=== PATIENT | female | born 1980 | race Caucasian/White ===

== ENCOUNTER 2016-04-28 14:41 | Emergency (ER) | payer OTHER ==
[2016-04-28] MEDS ORDERED: Naproxen 500 MG TAB ONE (15:18)
[2016-04-28] MEDS ORDERED: predniSONE 20 MG TAB ONE (15:18)
[2016-04-28] MEDS ORDERED: HYDROcodone/Acetaminophen 10/325 mg Tablet ONE (15:18)
[2016-04-28] MEDS ORDERED: Diazepam 5 MG TAB ONE (15:18)
--- NOTE | 2016-04-28 15:26 | RAD ---
RIGHT SHOULDER 3 VIEWS: Date: 04/28/16 INDICATION: Right shoulder pain. FINDINGS: There is no fracture or dislocation. AC joint is intact. IMPRESSION: No evidence of an acute osseous abnormality. POS: [facility]
--- NOTE | 2016-04-28 15:43 | RAD ---
TWO VIEWS OF THE RIGHT SCAPULA: INDICATION: Scapula pain. FINDINGS: No definite acute fracture or subluxation is present. Visualized right lung is clear. IMPRESSION: No acute osseous abnormality. POS: [facility]
== END 2016-04-28 15:56 | disposition home or self-care (01) ==
LOC: MADERS 14:41
DX: M62.838 Other muscle spasm (principal); I10 Essential (primary) hypertension; F41.9 Anxiety disorder, unspecified; F31.9 Bipolar disorder, unspecified; F90.9 Attention-deficit hyperactivity disorder, unspecified type; F17.210 Nicotine dependence, cigarettes, uncomplicated; Z79.899 Other long term (current) drug therapy
CPT/HCPCS: J7506

== ENCOUNTER 2016-06-27 21:50 | Emergency (ER) | payer OTHER ==
[2016-06-27] MEDS ORDERED: Cyclobenzaprine 10 MG TAB ONE (22:13)
[2016-06-27] MEDS ORDERED: Ketorolac Tromethamine 60 MG/2 ML VIAL ONE (22:13)
== END 2016-06-27 22:28 | disposition home or self-care (01) ==
LOC: MADERS 21:50
DX: M62.830 Muscle spasm of back (principal); R60.0 Localized edema; M06.9 Rheumatoid arthritis, unspecified; J45.909 Unspecified asthma, uncomplicated; K57.92 Diverticulitis of intestine, part unspecified, without perforation or abscess without bleeding; I10 Essential (primary) hypertension; F41.9 Anxiety disorder, unspecified; F31.9 Bipolar disorder, unspecified; F42.9 Obsessive-compulsive disorder, unspecified; F90.9 Attention-deficit hyperactivity disorder, unspecified type; F43.10 Post-traumatic stress disorder, unspecified; F17.210 Nicotine dependence, cigarettes, uncomplicated; Z79.899 Other long term (current) drug therapy
CPT/HCPCS: 96372; J1885

== ENCOUNTER 2016-07-08 13:13 | Emergency (ER) | payer OTHER ==
[~2016-07-08 13:13] MED LIST: Sodium Chloride 0.9% 500 ML BAG ONE
[2016-07-08 13:33] LABS: PTT 31.1 SEC (22.9-36.1); Prothrombin Time 13.2 SEC (12.0-14.7)
[2016-07-08 13:40] LABS: #Basophils 0.1 thou/uL (0.0-0.2); #Eosinphils 0.2 thou/uL (0.0-0.7); #Lymphocytes 3.9 thou/uL (1.20-3.40); #Monocytes 0.8 thou/uL (0.11-0.59); #Neutrophils 12.7 thou/uL (1.40-6.50); %Basophils 0.6 % (0.0-1.0); %Eosinophils 1.2 % (0.0-10.0); %Monocytes 4.6 % (0.0-10.0); %Neutrophils 71.6 % (42.0-75.0); Hemoglobin 14.6 g/dL (12.0-16.0); Mean Corpuscular HGB CONC 33.8 g/dL (32.0-36.0); Mean Corpuscular Hemoglobin 33.1 pg (27.0-31.0); Mean Corpuscular Volume 98.2 fl (81.0-99.0); Mean Platelet Volume 6.1 fL (7.4-10.4); Platelet Count 479 thou/uL (130-400); RBC Distribution Width 12.5 % (11.5-14.5); White Blood Cell (WBC) Count 17.7 thou/uL (4.8-10.8)
[2016-07-08 13:44] LABS: ALT (SGPT) 23 U/L (0-55); AST (SGOT) 13 U/L (5-34); Albumin 4.1 g/dL (3.5-5.0); Alcohol Less than 10 mg/dL (Less than 10); Alkaline Phosphatase 97 U/L (40-150); Anion Gap 13 mmol/L (10-20); BUN (Urea Nitrogen) 12 mg/dL (7.0-18.7); Bilirubin, Total 0.7 mg/dL (0.2-1.2); Calc. Creatinine Clearance 0 mL/min (70-130); Calcium 9.2 mg/dL (7.8-10.44); Carbon Dioxide 26 mmol/L (22-29); Chloride 104 mmol/L (98-107); Estimated GFR-MDRD Greater than 90; Globulin 2.9 g/dL (2.4-3.5); Glucose 77 mg/dL (70-105); Potassium 3.4 mmol/L (3.5-5.1); Sodium 140 mmol/L (136-145)
[2016-07-08 13:53] LABS: CKMB 1.3 ng/mL (0-6.6); Troponin I Less than 0.010 ng/mL (< 0.028)
--- NOTE | 2016-07-08 14:15 | RAD ---
PORTABLE CHEST 1 VIEW: Date: 07/08/16 Time: 1325 hours HISTORY: Chest pain. FINDINGS: The heart size is normal. No focal areas of consolidation, pneumothorax, or pleural effusions are se en. IMPRESSION: No radiographic evidence of acute cardiopulmonary process. POS: [facility]
[2016-07-08] MEDS ORDERED: Lorazepam 2 MG/ML VIAL ONE (14:37)
[2016-07-08] MEDS ORDERED: Potassium Chloride 20 MEQ TAB ONE (14:38)
[2016-07-08] MEDS ORDERED: Ondansetron HCl/PF 4 MG/2 ML Vial ONE (14:38)
--- NOTE | 2016-07-09 11:02 | CT ---
CT OF BRAIN PERFORMED WITHOUT CONTRAST ENHANCEMENT: Date: 07/08/16 HISTORY: Stroke. FINDINGS: The ventricular and cisternal system is within normal limits. There are no signs of intracerebral he morrhage or extra-axial fluid collections. The mastoid air cells and visualized sinuses are clear. A n osteoma is incidentally noted within the right ethmoid air cells. IMPRESSION: No acute intracranial abnormalities. This report was telephoned to Dr. Matson at 1330 hours. CODE CR. POS: [facility]
== END 2016-07-08 16:05 | disposition short-term general hospital (02) ==
LOC: MADERS 13:13
DX: G51.3 Clonic hemifacial spasm (principal); E87.6 Hypokalemia; I10 Essential (primary) hypertension; J45.909 Unspecified asthma, uncomplicated; F41.9 Anxiety disorder, unspecified; F31.9 Bipolar disorder, unspecified; F90.9 Attention-deficit hyperactivity disorder, unspecified type; F17.210 Nicotine dependence, cigarettes, uncomplicated; Z79.899 Other long term (current) drug therapy
CPT/HCPCS: 36415; 36416; 70450; 71010; 80053; 80307; 82553; 84484; 85025; 85610; 85730; 93005; 96361; 96374; 96375; 96376; J2060; J2405; J7050

== ENCOUNTER 2016-09-25 21:11 | Emergency (ER) | payer OTHER ==
[2016-09-25] MEDS ORDERED: Diazepam 10 MG/2 ML SYRINGE ONE (22:02)
[2016-09-25] MEDS ORDERED: Lorazepam 2 MG/ML VIAL ONE (22:02)
[2016-09-25] MEDS ORDERED: Morphine Sulfate 2 MG/ML SYRINGE ONE ×2 (22:02→23:19)
[2016-09-25 22:18] LABS: #Basophils 0.1 thou/uL (0.0-0.2); #Eosinphils 0.2 thou/uL (0.0-0.7); #Lymphocytes 3.1 thou/uL (1.20-3.40); #Monocytes 0.7 thou/uL (0.11-0.59); #Neutrophils 6.6 thou/uL (1.40-6.50); %Basophils 1.2 % (0.0-1.0); %Eosinophils 1.7 % (0.0-10.0); %Monocytes 6.2 % (0.0-10.0); Hemoglobin 14.9 g/dL (12.0-16.0); Mean Corpuscular HGB CONC 33.6 g/dL (32.0-36.0); Mean Corpuscular Volume 95.2 fl (81.0-99.0); Mean Platelet Volume 6.9 fL (7.4-10.4); Platelet Count 384 thou/uL (130-400); RBC Distribution Width 12.5 % (11.5-14.5); Red Blood Cell (RBC) Count 4.64 mill/uL (4.20-5.40); White Blood Cell (WBC) Count 10.6 thou/uL (4.8-10.8)
--- NOTE | 2016-09-25 22:27 | RAD ---
PORTABLE UPRIGHT FRONTAL CHEST RADIOGRAPH: Date: 09-25-16 Comparison: 07-08-16 History: Pain. FINDINGS: Motion artifact limits evaluation of the lung bases. The lungs appear clear. Heart and mediastinal c ontours are unremarkable. IMPRESSION: No acute findings. POS: [facility]
[2016-09-25 22:28] LABS: BHCG - Serum Negative (NEGATIVE); Pregs Control Background? CLEAR/WHITE (CLR/WHITE); Pregs Control Bar Appear? YES (CONTROL BAR)
[2016-09-25 22:35] LABS: Bacteria/HPF Rare-Few HPF (None Seen); Bilirubin Negative (Negative); Blood, Urine Trace (Negative); Clarity Hazy (Clear); Glucose, Urine (Dipstick) Negative (Negative); Leukocyte Negative (Negative); Nitrite Negative (Negative); Protein, Urine (Dipstick) Negative (Neg-Trace); RBC/HPF 0-3 HPF (0-3); Urobilinogen 0.2 mg/dL (0.2-1.0); WBC/HPF 0-3 HPF (0-3); Yeast-All Forms Rare HPF (None Seen); pH, Urine 6.5 (5.0-9.0)
[2016-09-25 22:36] LABS: ALT (SGPT) 16 U/L (8-55); AST (SGOT) 14 U/L (5-34); Albumin 3.7 g/dL (3.5-5.0); Alkaline Phosphatase 72 U/L (40-150); Anion Gap 17 mmol/L (10-20); BUN (Urea Nitrogen) 13 mg/dL (7.0-18.7); Bilirubin, Total Less than 0.3 mg/dL (0.2-1.2); Calc. Creatinine Clearance 0 mL/min (70-130); Calcium 8.7 mg/dL (7.8-10.44); Carbon Dioxide 21 mmol/L (22-29); Chloride 102 mmol/L (98-107); Estimated GFR-MDRD 90; Globulin 4.1 g/dL (2.4-3.5); Glucose 89 mg/dL (70-105); Potassium 3.5 mmol/L (3.5-5.1); Protein, Total 7.8 g/dL (6.0-8.3); Sodium 136 mmol/L (136-145)
== END 2016-09-25 23:38 | disposition home or self-care (01) ==
LOC: MADERS 21:11
DX: M62.838 Other muscle spasm (principal); E87.70 Fluid overload, unspecified; M06.9 Rheumatoid arthritis, unspecified; I10 Essential (primary) hypertension; J45.909 Unspecified asthma, uncomplicated; G40.909 Epilepsy, unspecified, not intractable, without status epilepticus; F31.9 Bipolar disorder, unspecified; F41.9 Anxiety disorder, unspecified; F90.9 Attention-deficit hyperactivity disorder, unspecified type; F17.210 Nicotine dependence, cigarettes, uncomplicated; Z79.899 Other long term (current) drug therapy
CPT/HCPCS: 71010; 80053; 81001; 83880; 84703; 85025; 87086; 96374; 96375; 96376; J2060; J2270; J3360

== ENCOUNTER 2016-12-07 23:49 | Emergency (ER) | payer OTHER ==
[2016-12-08] MEDS ORDERED: Cephalexin 500 MG CAP ONE (00:22)
[2016-12-08] MEDS ORDERED: Acetaminophen/Codeine 30-300mg Tablet ONE (00:22)
[2016-12-08] MEDS ORDERED: Sulfameth/Trimethoprim DS 800-160mg TAB ONE (00:22)
[2016-12-08] MEDS ORDERED: Mupirocin 2% Ointment 22 GM Tube ONE (00:34)
== END 2016-12-08 00:45 | disposition home or self-care (01) ==
LOC: MADERS 23:49
DX: L01.00 Impetigo, unspecified (principal); F41.9 Anxiety disorder, unspecified; F31.9 Bipolar disorder, unspecified; F42.9 Obsessive-compulsive disorder, unspecified; F43.10 Post-traumatic stress disorder, unspecified; F17.210 Nicotine dependence, cigarettes, uncomplicated; F90.9 Attention-deficit hyperactivity disorder, unspecified type; G40.909 Epilepsy, unspecified, not intractable, without status epilepticus; J45.909 Unspecified asthma, uncomplicated; I10 Essential (primary) hypertension; M06.9 Rheumatoid arthritis, unspecified; Z79.01 Long term (current) use of anticoagulants; Z79.899 Other long term (current) drug therapy
CPT/HCPCS: 87070; 87077; 87186; 87205; 99283

== ENCOUNTER → 2017-03-07 | Emergency (ER) | payer OTHER ==
[~2017-03-07] MED LIST changes: +HYDROcodone/Acetaminophen 10/325 mg Tablet ONE; +Ibuprofen 800 MG TAB ONE; +Penicillin V Potassium 250 MG TAB ONE; -Sodium Chloride 0.9% 500 ML BAG ONE
== END ==
LOC: MADERS 17:45
DX: K02.9 Dental caries, unspecified (principal); K03.81 Cracked tooth; F31.9 Bipolar disorder, unspecified; F41.9 Anxiety disorder, unspecified; F90.9 Attention-deficit hyperactivity disorder, unspecified type; F43.10 Post-traumatic stress disorder, unspecified; F17.210 Nicotine dependence, cigarettes, uncomplicated; J45.909 Unspecified asthma, uncomplicated; I10 Essential (primary) hypertension; G40.909 Epilepsy, unspecified, not intractable, without status epilepticus; M06.9 Rheumatoid arthritis, unspecified; Z79.899 Other long term (current) drug therapy
CPT/HCPCS: 99282

== ENCOUNTER 2017-03-27 15:52 | Emergency (ER) | payer OTHER ==
[2017-03-27] MEDS ORDERED: Dexamethasone 10 MG/ML VIAL ONE (16:19)
[2017-03-27] MEDS ORDERED: Ketorolac Tromethamine 60 MG/2 ML VIAL ONE (16:19)
[2017-03-27] MEDS ORDERED: HYDROcodone/Acetaminophen 5/325 mg Tablet ONE (16:59)
== END 2017-03-27 17:05 | disposition home or self-care (01) ==
LOC: MADERS 15:52
DX: M25.50 Pain in unspecified joint (principal); M79.7 Fibromyalgia; I10 Essential (primary) hypertension; G40.909 Epilepsy, unspecified, not intractable, without status epilepticus; G89.29 Other chronic pain; J45.909 Unspecified asthma, uncomplicated; F17.210 Nicotine dependence, cigarettes, uncomplicated; F31.9 Bipolar disorder, unspecified; Z79.899 Other long term (current) drug therapy; Z79.82 Long term (current) use of aspirin
CPT/HCPCS: 96372; J1100; J1885

== ENCOUNTER 2017-04-09 12:27 | Emergency (ER) | payer OTHER ==
[~2017-04-09 12:27] MED LIST changes: -HYDROcodone/Acetaminophen 10/325 mg Tablet ONE; -Ibuprofen 800 MG TAB ONE; +Iopamidol 370 76% 100 ML VIAL ONE; -Penicillin V Potassium 250 MG TAB ONE; +Sodium Chloride 0.9% 1,000 ML BAG ONE
[2017-04-09] MEDS ORDERED: Ondansetron HCl/PF 4 MG/2 ML Vial ONE (13:05)
[2017-04-09] MEDS ORDERED: Ketorolac Tromethamine 30 MG/ML VIAL ONE (13:05)
[2017-04-09 13:29] LABS: #Basophils 0.1 thou/uL (0.0-0.2); #Eosinphils 0.1 thou/uL (0.0-0.7); #Monocytes 0.5 thou/uL (0.11-0.59); %Eosinophils 1.1 % (0.0-10.0); %Lymphocytes 28.4 % (21.0-51.0); %Monocytes 4.2 % (0.0-10.0); %Neutrophils 65.3 % (42.0-75.0); Hemoglobin 14.7 g/dL (12.0-16.0); Mean Corpuscular HGB CONC 32.5 g/dL (32.0-36.0); Mean Corpuscular Hemoglobin 32.7 pg (27.0-31.0); Mean Corpuscular Volume 100.7 fl (81.0-99.0); Mean Platelet Volume 6.2 fL (7.4-10.4); Platelet Count 407 thou/uL (130-400); RBC Distribution Width 15.2 % (11.5-14.5); Red Blood Cell (RBC) Count 4.49 mill/uL (4.20-5.40); White Blood Cell (WBC) Count 10.7 thou/uL (4.8-10.8)
[2017-04-09 13:50] LABS: ALT (SGPT) 101 U/L (8-55); AST (SGOT) 47 U/L (5-34); Albumin 3.7 g/dL (3.5-5.0); Alkaline Phosphatase 121 U/L (40-150); Anion Gap 16 mmol/L (10-20); BUN (Urea Nitrogen) 15 mg/dL (7.0-18.7); Bilirubin, Total 0.5 mg/dL (0.2-1.2); Calc. Creatinine Clearance 0 mL/min (70-130); Calcium 9.1 mg/dL (7.8-10.44); Carbon Dioxide 22 mmol/L (22-29); Chloride 104 mmol/L (98-107); Estimated GFR-MDRD 90; Globulin 3.7 g/dL (2.4-3.5); Glucose 120 mg/dL (70-105); Lipase 25 U/L (8-78); Protein, Total 7.4 g/dL (6.0-8.3); Sodium 137 mmol/L (136-145)
[2017-04-09 14:35] LABS: Bilirubin Negative (Negative); Blood, Urine Negative (Negative); Glucose, Urine (Dipstick) Negative (Negative); Leukocyte Negative (Negative); Nitrite Negative (Negative); Protein, Urine (Dipstick) Negative (Neg-Trace); Specific Gravity, Urine 1.015 (1.005-1.030); Urobilinogen 0.2 mg/dL (0.2-1.0); pH, Urine 8.5 (5.0-9.0)
[2017-04-09 14:36] LABS: Clarity Hazy (Clear)
[2017-04-09 14:43] LABS: Amphetamine Not Detected (NotDetected); Barbiturates Screen Not Detected (NotDetected); Benzodiazepine Screen Not Detected (NotDetected); Cocaine Metabolite Screen Not Detected (NotDetected); Medtox Control Line Valid? VALID (VALID); Methadone Not Detected (NotDetected); Methamphetamine Not Detected (NotDetected); Opiate Screen Not Detected (NotDetected); Oxycodone Screen Not Detected (NotDetected); Phencyclidine (PCP) Not Detected (NotDetected); THC/Cannabinoid Screen Not Detected (NotDetected); Tricyclic Screen Not Detected (NotDetected)
--- NOTE | 2017-04-09 15:00 | CT ---
ABDOMEN CT WITH CONTRAST PELVIC CT WITH CONTRAST: Date: 04/09/17 HISTORY: Cervical cancer. Left lower quadrant pain. COMPARISON: 11/25/12. TECHNIQUE: Abdomen and pelvic CT performed with IV contrast. Enteric contrast was not administered. Coronal refo rmatted images are submitted for interpretation. FINDINGS: ABDOMEN CT: Lung bases are clear. Heart size is within normal limits. No pericardial effusion. The descending tho racic aorta and abdominal aorta have an overall normal caliber. No periaortic fat stranding. Symmetri c attenuation of the psoas muscles. No gastrohepatic, retrocrural, or periportal lymphadenopathy. Intra and extrahepatic portal veins pat ent. Contracted gallbladder. Liver, spleen, pancreas, and adrenal glands have appropriate enhancement. No mesenteric mass, lymphadenopathy, free air, or free fluid. Symmetric enhancement of the kidneys. Hypodensities in the left and right renal cortex are too small to characterize, but are statistically favored to be cysts. Bilaterally, no obstructive uropathy. There is evidence of previous hernia repair. There continues to be diastasis of the ventral abdominal musculature. There is stable stranding of the subcutaneous fat just superficial to the mesh. Stable atrophy of the rectus muscles. Limited evaluation of the alimentary canal due to lack of oral contrast. No definite bowel obstructio n. Ileocecal junction is normal. Normal caliber appendix. There is diverticulosis, without evidence o f diverticulitis. PELVIC CT: Uterus is surgically absent. Left adnexa is unremarkable. Hypodensity with septations in the right ad nexa, compatible with a complex right ovarian cyst, measuring 3.6 x 3.1 cm. Urinary bladder is unremarkable. No pelvic mass, lymphadenopathy, free air, or free fluid. IMPRESSION: No acute abnormality in the abdomen or pelvis. Complex right ovarian cyst. Follow up ultrasound in 6 weeks. POS: [facility]
[2017-04-09] MEDS ORDERED: Dicyclomine 10 MG CAP ONE (15:03)
== END 2017-04-09 15:21 | disposition home or self-care (01) ==
LOC: MADERS 12:27
DX: K57.90 Diverticulosis of intestine, part unspecified, without perforation or abscess without bleeding (principal); K66.0 Peritoneal adhesions (postprocedural) (postinfection); M06.9 Rheumatoid arthritis, unspecified; J45.909 Unspecified asthma, uncomplicated; F41.9 Anxiety disorder, unspecified; F31.9 Bipolar disorder, unspecified; F90.9 Attention-deficit hyperactivity disorder, unspecified type; F17.210 Nicotine dependence, cigarettes, uncomplicated; Z79.899 Other long term (current) drug therapy
CPT/HCPCS: 36415; 74177; 80053; 80306; 81003; 82150; 83690; 85025; 96361; 96374; 96375; J1885; J2405; J7050

== ENCOUNTER 2017-04-10 07:54 | Emergency (ER) | payer OTHER ==
[~2017-04-10 07:54] MED LIST changes: -Iopamidol 370 76% 100 ML VIAL ONE
[2017-04-10 08:44] LABS: Bilirubin Negative (Negative); Blood, Urine Small (Negative); Clarity Clear (Clear); Glucose, Urine (Dipstick) Negative (Negative); Leukocyte Trace (Negative); Nitrite Negative (Negative); Protein, Urine (Dipstick) Negative (Neg-Trace); Urobilinogen 0.2 mg/dL (0.2-1.0)
[2017-04-10 08:52] LABS: #Basophils 0.1 thou/uL (0.0-0.2); #Eosinphils 0.1 thou/uL (0.0-0.7); #Monocytes 0.8 thou/uL (0.11-0.59); #Neutrophils 13.4 thou/uL (1.40-6.50); %Basophils 0.4 % (0.0-1.0); %Eosinophils 0.7 % (0.0-10.0); %Monocytes 4.8 % (0.0-10.0); %Neutrophils 82.1 % (42.0-75.0); Hemoglobin 14.1 g/dL (12.0-16.0); Mean Corpuscular HGB CONC 32.3 g/dL (32.0-36.0); Mean Platelet Volume 6.3 fL (7.4-10.4); Platelet Count 353 thou/uL (130-400); RBC Distribution Width 15.3 % (11.5-14.5); Red Blood Cell (RBC) Count 4.29 mill/uL (4.20-5.40); White Blood Cell (WBC) Count 16.3 thou/uL (4.8-10.8)
[2017-04-10] MEDS ORDERED: MORPHINE 10 MG/ML SYRINGE ONE (08:56)
[2017-04-10 09:01] LABS: WBC/HPF 0-3 HPF (0-3)
[2017-04-10 09:02] LABS: Bacteria/HPF Rare-Few HPF (None Seen)
[2017-04-10 09:03] LABS: INR-International Normal Ratio 0.8; Prothrombin Time 11.5 SEC (12.0-14.7)
[2017-04-10 09:13] LABS: ALT (SGPT) 119 U/L (8-55); AST (SGOT) 63 U/L (5-34); Albumin 3.7 g/dL (3.5-5.0); Alkaline Phosphatase 137 U/L (40-150); Anion Gap 16 mmol/L (10-20); BUN (Urea Nitrogen) 17 mg/dL (7.0-18.7); Calc. Creatinine Clearance 0 mL/min (70-130); Calcium 9.8 mg/dL (7.8-10.44); Carbon Dioxide 25 mmol/L (22-29); Chloride 102 mmol/L (98-107); Estimated GFR-MDRD 83; Globulin 3.6 g/dL (2.4-3.5); Glucose 79 mg/dL (70-105); Potassium 4.6 mmol/L (3.5-5.1); Protein, Total 7.3 g/dL (6.0-8.3); Sodium 138 mmol/L (136-145)
[2017-04-10 09:20] LABS: Bilirubin, Total 0.4 mg/dL (0.2-1.2)
--- NOTE | 2017-04-10 09:42 | RAD ---
1 VIEW CHEST AND ABDOMEN 2 VIEWS: Date: 04/10/17 HISTORY: Abdominal pain x4 days. Nausea, vomiting, and diarrhea. FINDINGS: 1 VIEW CHEST: Normal cardiac silhouette. Pulmonary vessels and hilum are normal. Costophrenic angles are clear. No masses or consolidation. No pneumothorax or osseous abnormalities. ABDOMEN 2 VIEWS: Limited evaluation of bowel gas. No evidence of bowel distention or dilatation. Fecal material in non distended, nondilated colon. No suspicious densities in the abdomen or pelvis. Surgical clips in the right upper quadrant. No pneumoperitoneum. IMPRESSION: 1. No acute cardiopulmonary process. 2. Nonspecific bowel gas pattern. Limited evaluation of the bowel gas pattern due to body habitus. I f there is concern, consider repeat CT. POS: [facility]
[2017-04-10] MEDS ORDERED: Piperacillin/Tazobactam 4.5 GM VIAL ONE (09:49)
[2017-04-10] MEDS ORDERED: Morphine 4 MG/ML VIAL ONE ×2 (10:48→14:33)
[2017-04-10] MEDS ORDERED: Iopamidol 370 76% 100 ML VIAL ONE (12:05)
--- NOTE | 2017-04-10 14:14 | CT ---
CT OF THE ABDOMEN AND PELVIS WITH CONTRAST: History: Left lower quadrant pain. Date: 04-10-17 Comparison: 04-09-17 FINDINGS: Images demonstrate no significant evidence of lung base abnormality seen. No evidence of intraperiton eal air is seen. No evidence of periaortic fat stranding is seen. The liver, spleen, gallbladder, lugo creas, adrenal glands and kidneys are unremarkable. Small cortical cyst seen in both kidneys. No evidence of small bowel obstruction is seen. A normal appendix is seen. The colon is unremarkable without evidence of obvious masses or changes of diverticulitis. The patient has had a previous hysterectomy. Right ovarian cyst is again seen. Left ovary is unremark able. IMPRESSION: 1. Stable CT appearance of the abdomen and pelvis. POS: [facility]
== END 2017-04-10 15:57 | disposition home or self-care (01) ==
LOC: MADERS 07:54
DX: A09 Infectious gastroenteritis and colitis, unspecified (principal); I10 Essential (primary) hypertension; J45.909 Unspecified asthma, uncomplicated; F41.9 Anxiety disorder, unspecified; F31.9 Bipolar disorder, unspecified; F90.9 Attention-deficit hyperactivity disorder, unspecified type; F17.210 Nicotine dependence, cigarettes, uncomplicated
CPT/HCPCS: 74022; 74177; 80053; 81003; 81015; 85025; 85610; 85730; 96361; 96365; 96375; 96376; J2270; J2543; J7050

== ENCOUNTER 2017-07-02 18:12 | Emergency (ER) | payer OTHER ==
[2017-07-02] MEDS ORDERED: Mag-Al Plus 1200 MG/1200 MG/120 MG/30 ML UDCUP ONE (18:59)
[2017-07-02] MEDS ORDERED: Promethazine HCl 25 MG/ML VIAL ONE (18:59)
== END 2017-07-02 19:00 | disposition home or self-care (01) ==
LOC: MADERS 18:12
DX: K52.9 Noninfective gastroenteritis and colitis, unspecified (principal); F31.9 Bipolar disorder, unspecified; F41.9 Anxiety disorder, unspecified; F90.9 Attention-deficit hyperactivity disorder, unspecified type; F43.10 Post-traumatic stress disorder, unspecified; F42.9 Obsessive-compulsive disorder, unspecified; F17.210 Nicotine dependence, cigarettes, uncomplicated; J45.909 Unspecified asthma, uncomplicated; G40.909 Epilepsy, unspecified, not intractable, without status epilepticus; M06.9 Rheumatoid arthritis, unspecified; Z79.899 Other long term (current) drug therapy; F40.00 Agoraphobia, unspecified
CPT/HCPCS: 96372; J2550

== ENCOUNTER 2017-10-02 15:51 | Emergency (ER) | payer OTHER ==
[2017-10-02] MEDS ORDERED: HYDROcodone/Acetaminophen 10/325 mg Tablet ONE (17:01)
[2017-10-02] MEDS ORDERED: Naproxen 500 MG TAB ONE (17:01)
[2017-10-02] MEDS ORDERED: AMOXicillin 250 MG CAP ONE (17:01)
[2017-10-02] MEDS ORDERED: predniSONE 20 MG TAB ONE (17:01)
== END 2017-10-02 17:05 | disposition home or self-care (01) ==
LOC: MADERS 15:51
DX: L42 Pityriasis rosea (principal); K02.9 Dental caries, unspecified; M06.9 Rheumatoid arthritis, unspecified; I10 Essential (primary) hypertension; F31.9 Bipolar disorder, unspecified; F41.9 Anxiety disorder, unspecified; F17.210 Nicotine dependence, cigarettes, uncomplicated
CPT/HCPCS: 99282; J7506

== ENCOUNTER 2018-04-10 16:34 | Emergency (ER) | payer OTHER | END 2018-04-10 17:30 | disposition home or self-care (01) | LOC: MADERS 16:34 | DX: M79.7 Fibromyalgia (principal); I10 Essential (primary) hypertension; J45.909 Unspecified asthma, uncomplicated; G40.909 Epilepsy, unspecified, not intractable, without status epilepticus; F41.9 Anxiety disorder, unspecified; F31.9 Bipolar disorder, unspecified; F42.9 Obsessive-compulsive disorder, unspecified; F90.9 Attention-deficit hyperactivity disorder, unspecified type; F43.10 Post-traumatic stress disorder, unspecified; F17.210 Nicotine dependence, cigarettes, uncomplicated | CPT/HCPCS: 99283 ==

== ENCOUNTER 2018-09-05 19:44 | Inpatient (IN) | payer OTHER ==
[~2018-09-05 19:44] MED LIST changes: +Iopamidol 370 76% 100 ML VIAL ONE; -Sodium Chloride 0.9% 1,000 ML BAG ONE
[2018-09-05] MEDS ORDERED: Clindamycin/D5W 600 mg/50 ml Premix Bag ONE (21:00)
[2018-09-05] MEDS ORDERED: Morphine 10 MG/ML VIAL ONE (21:00)
[2018-09-05 21:01] LABS: #Basophils 0.1 thou/uL (0.0-0.2); #Eosinphils 0.1 thou/uL (0.0-0.7); #Lymphocytes 2.5 thou/uL (1.20-3.40); #Monocytes 0.9 thou/uL (0.11-0.59); #Neutrophils 10.4 thou/uL (1.40-6.50); %Basophils 0.7 % (0.0-1.0); %Eosinophils 0.6 % (0.0-10.0); %Lymphocytes 17.6 % (21.0-51.0); %Monocytes 6.1 % (0.0-10.0); %Neutrophils 74.9 % (42.0-75.0); Hemoglobin 12.6 g/dL (12.0-16.0); Mean Corpuscular HGB CONC 34.1 g/dL (32.0-36.0); Mean Corpuscular Hemoglobin 31.5 pg (27.0-31.0); Mean Corpuscular Volume 92.5 fL (78.0-98.0); Mean Platelet Volume 5.5 fL (7.4-10.4); Platelet Count 408 thou/uL (130-400); RBC Distribution Width 12.6 % (11.5-14.5); Red Blood Cell (RBC) Count 4.01 mill/uL (4.20-5.40); White Blood Cell (WBC) Count 13.9 thou/uL (4.8-10.8)
[2018-09-05 21:21] LABS: ALT (SGPT) 93 U/L (8-55); AST (SGOT) 111 U/L (5-34); Albumin 3.5 g/dL (3.5-5.0); Alkaline Phosphatase 196 U/L (40-150); Anion Gap 15 mmol/L (10-20); BUN (Urea Nitrogen) 10 mg/dL (7.0-18.7); Bilirubin, Total 0.3 mg/dL (0.2-1.2); Calc. Creatinine Clearance 0 mL/min (70-130); Calcium 8.3 mg/dL (7.8-10.44); Carbon Dioxide 23 mmol/L (22-29); Chloride 102 mmol/L (98-107); Estimated GFR-MDRD Greater than 90; Globulin 3.1 g/dL (2.4-3.5); Glucose 133 mg/dL (70-105); Potassium 3.6 mmol/L (3.5-5.1); Protein, Total 6.6 g/dL (6.0-8.3); Sodium 136 mmol/L (136-145)
--- NOTE | 2018-09-05 22:17 | CT ---
CT OF FACIAL BONES PERFORMED WITH CONTRAST ENHANCEMENT: 09/05/18 HISTORY: Right sided facial swelling x5 days. The visualized brain parenchyma shows no focal findings. There is mild ethmoid air cell mucosa change with an osteoma in the right ethmoid air cells incidentally seen. Bilateral avelina bullosa deformiti es are present. There is moderate mucosal change within the right maxillary sinus with obstructive mu cosal change of the right maxillary ostium. Nasal septum is slightly deviated and there is a right si ded nasal septal spur present. No air fluid levels. The parotid and submandibular glands appear unrem arkable. There are inflammatory changes on the superficial portion of the right parotid gland. Parap haryngeal spaces are clear. Soft tissue swelling extends along the right side of the face. There is e vidence of dental disease involving the maxillary bone but I would not definitely say that this is th e underlying cause for the facial swelling. There is moderate submandibular and jugular chain adenopa thy which is probably all reactive nodes. IMPRESSION: Moderate right sided facial swelling without signs of abscess. Changes are felt to be related to the underlying maxillary sinus disease rather than dental disease. POS: [facility]
[2018-09-05] MEDS ORDERED: cefTRIAXone\\ROCEPHIN 1 GM VIAL ONE (23:00)
[2018-09-05] MEDS ORDERED: Sodium Chloride 0.9% 100 ML ONE (23:00)
[2018-09-06] MEDS ORDERED: Morphine 4 MG/ML VIAL ONE (00:01)
[2018-09-06] MEDS ORDERED: HYDROcodone/Acetaminophen 5/325 mg Tablet PO PRN (01:55)
[2018-09-06] MEDS ORDERED: Acetaminophen 325 MG TAB PO PRN (01:55)
[2018-09-06] MEDS ORDERED: Ondansetron ODT 4 MG TAB PO PRN (01:56)
[2018-09-06] MEDS: HYDROcodone/Acetaminophen 5/325 mg Tablet PO PRN ×5 (03:39→21:06)
[2018-09-06 04:58] VITALS: BMI 42.5
[2018-09-06] MEDS: Clindamycin/D5W 600 MG in Premix Bag 1 BAG IVPB SCH ×3 (05:31→21:05)
[2018-09-06] MEDS: Famotidine 20 MG TAB PO SCH ×2 (09:09→21:05)
[2018-09-06] MEDS: Enoxaparin Sodium 40 MG/0.4 ML SYRINGE SC SCH (09:09)
[2018-09-06] MEDS: clonazePAM 0.5 MG TAB PO SCH (21:04)
[2018-09-06] MEDS: LURASIDONE HCL 20 MG PO SCH (21:05)
[2018-09-06] MEDS: cloNIDine 0.1 MG TAB PO SCH (21:05)
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
[2018-09-07] MEDS: HYDROcodone/Acetaminophen 5/325 mg Tablet PO PRN ×5 (02:24→21:17)
[2018-09-07 05:11] LABS: Hemoglobin 12.7 g/dL (12.0-16.0); Red Blood Cell (RBC) Count 4.15 mill/uL (4.20-5.40); White Blood Cell (WBC) Count 11.7 thou/uL (4.8-10.8)
[2018-09-07 05:12] LABS: #Basophils 0.1 thou/uL (0.0-0.2); #Eosinphils 0.1 thou/uL (0.0-0.7); #Lymphocytes 2.4 thou/uL (1.20-3.40); #Monocytes 0.7 thou/uL (0.11-0.59); #Neutrophils 8.3 thou/uL (1.40-6.50); %Basophils 0.6 % (0.0-1.0); %Eosinophils 0.9 % (0.0-10.0); %Lymphocytes 20.8 % (21.0-51.0); %Monocytes 6.4 % (0.0-10.0); %Neutrophils 71.4 % (42.0-75.0); Mean Corpuscular HGB CONC 32.6 g/dL (32.0-36.0); Mean Corpuscular Hemoglobin 30.6 pg (27.0-31.0); Mean Platelet Volume 5.4 fL (7.4-10.4); Platelet Count 421 thou/uL (130-400); RBC Distribution Width 12.5 % (11.5-14.5)
[2018-09-07] MEDS: Clindamycin/D5W 600 MG in Premix Bag 1 BAG IVPB SCH ×3 (06:22→21:17)
[2018-09-07] MEDS ORDERED: Meloxicam 7.5 MG TAB PO SCH (07:00)
[2018-09-07] MEDS: cloNIDine 0.1 MG TAB PO SCH ×2 (08:38→20:43)
[2018-09-07] MEDS: Famotidine 20 MG TAB PO SCH ×2 (08:38→20:43)
[2018-09-07] MEDS: clonazePAM 0.5 MG TAB PO SCH ×2 (08:38→20:42)
[2018-09-07] MEDS: Enoxaparin Sodium 40 MG/0.4 ML SYRINGE SC SCH (08:38)
[2018-09-07] MEDS: LURASIDONE HCL 20 MG PO SCH (20:43)
[2018-09-08] MEDS: HYDROcodone/Acetaminophen 5/325 mg Tablet PO PRN ×4 (02:14→19:37)
[2018-09-08] MEDS: Clindamycin/D5W 600 MG in Premix Bag 1 BAG IVPB SCH ×3 (05:57→21:16)
[2018-09-08 07:20] LABS: ALT (SGPT) 154 U/L (8-55); AST (SGOT) 44 U/L (5-34); Albumin 3.5 g/dL (3.5-5.0); Alkaline Phosphatase 230 U/L (40-150); Anion Gap 15 mmol/L (10-20); BUN (Urea Nitrogen) 8 mg/dL (7.0-18.7); Bilirubin, Total 0.4 mg/dL (0.2-1.2); Calc. Creatinine Clearance 170 mL/min (70-130); Calcium 8.7 mg/dL (7.8-10.44); Carbon Dioxide 27 mmol/L (22-29); Chloride 99 mmol/L (98-107); Estimated GFR-MDRD 84; Globulin 3.6 g/dL (2.4-3.5); Glucose 167 mg/dL (70-105); Potassium 3.5 mmol/L (3.5-5.1); Protein, Total 7.1 g/dL (6.0-8.3); Sodium 137 mmol/L (136-145)
[2018-09-08] MEDS: clonazePAM 0.5 MG TAB PO SCH ×2 (09:41→20:46)
[2018-09-08] MEDS: cloNIDine 0.1 MG TAB PO SCH ×2 (09:41→20:46)
[2018-09-08] MEDS: Meloxicam 7.5 MG TAB PO SCH (09:41)
[2018-09-08] MEDS: Enoxaparin Sodium 40 MG/0.4 ML SYRINGE SC SCH (09:42)
[2018-09-08] MEDS: Famotidine 20 MG TAB PO SCH ×2 (09:45→20:46)
[2018-09-08] MEDS: LURASIDONE HCL 20 MG PO SCH (20:47)
[2018-09-09] MEDS: Clindamycin/D5W 600 MG in Premix Bag 1 BAG IVPB SCH (05:14)
[2018-09-09] MEDS: HYDROcodone/Acetaminophen 5/325 mg Tablet PO PRN ×3 (05:14→16:12)
[2018-09-09 06:16] LABS: Albumin 3.1 g/dL (3.5-5.0)
[2018-09-09 07:07] LABS: ALT (SGPT) 95 U/L (8-55); AST (SGOT) 20 U/L (5-34); Alkaline Phosphatase 196 U/L (40-150); Bilirubin, Direct 0.1 mg/dL (0.1-0.3); Bilirubin, Total 0.2 mg/dL (0.2-1.2); Protein, Total 6.4 g/dL (6.0-8.3)
--- NOTE | 2018-09-09 07:46 | ULT ---
Exam: Right upper quadrant ultrasound: HISTORY: Elevated liver enzymes. COMPARISON: None FINDINGS: Liver: Within normal limits Gallbladder: There is suggestion of a very thin wall echo shadow with multiple echogenic foci demonst rating posterior shadowing in the gallbladder lumen, and findings are most suggestive of a gallbladder filled with multiple gallbladder calculi. No gallbladder wall thickening is seen, and the re is no evidence of pericholecystic fluid. Common bile duct: Majority of the common duct is obscured, but where visualized does appear normal in caliber measuring 0.3 cm in diameter. Pancreas: Limited visualized portions of the pancreas demonstrate a normal sonographic appearance. Right kidney: Right kidney demonstrates a normal sonographic appearance. The right kidney measures 4 .3 cm in length. IVC: Visualized IVC demonstrates a normal sonographic appearance. Abdominal aorta: Normal in caliber. IMPRESSION: 1. Cholelithiasis with the gallbladder filled with multiple gallbladder calculi. No gallbladder wall thickening or pericholecystic fluid is noted. Resolution Specialist does note a positive sonographic Chun's sign. 2. Normal caliber common duct where visualized.
[2018-09-09] MEDS: Clindamycin 150 MG CAP PO SCH ×2 (08:22→16:17)
[2018-09-09] MEDS: clonazePAM 0.5 MG TAB PO SCH ×2 (08:22→20:39)
[2018-09-09] MEDS: cloNIDine 0.1 MG TAB PO SCH ×2 (08:23→20:39)
[2018-09-09] MEDS: Meloxicam 7.5 MG TAB PO SCH (08:23)
[2018-09-09] MEDS: Famotidine 20 MG TAB PO SCH ×2 (08:23→20:39)
[2018-09-09] MEDS: Enoxaparin Sodium 40 MG/0.4 ML SYRINGE SC SCH (08:24)
[2018-09-09] MEDS: LURASIDONE HCL 20 MG PO SCH (20:37)
[2018-09-10] MEDS: Clindamycin 150 MG CAP PO SCH ×2 (08:23)
[2018-09-10] MEDS: cloNIDine 0.1 MG TAB PO SCH (08:23)
[2018-09-10] MEDS: Meloxicam 7.5 MG TAB PO SCH (08:24)
[2018-09-10] MEDS: clonazePAM 0.5 MG TAB PO SCH (08:24)
[2018-09-10] MEDS: Enoxaparin Sodium 40 MG/0.4 ML SYRINGE SC SCH (08:24)
[2018-09-10] MEDS: Famotidine 20 MG TAB PO SCH (08:27)
[2018-09-10 09:29] VITALS: BP 159/84; TEMP 98.2
--- NOTE | 2018-09-11 05:31 | DIS ---
DATE OF ADMISSION: 09/05/2018 DATE OF DISCHARGE: 09/10/2018 REASON FOR ADMISSION: Facial cellulitis, failed outpatient therapy. DISCHARGE DIAGNOSES: 1. Facial cellulitis, failed outpatient therapy, resolving. 2. Dental infection status post incision and drainage on 08/31/2018, as the primary source. 3. Multiple cholelithiasis without obstruction nor cholecystitis. 4. Elevated transaminases secondary to incidental finding of cholelithiasis. Patient is symptom free. 5. Poor dentition/multiple caries teeth, highly recommending further dental evaluation and management. SECONDARY DIAGNOSES: 1. Gastroesophageal reflux, chronic. 2. Chronic anxiety and depression. 3. History of bipolar disorder. DISPOSITION: Home. CONDITION ON DISCHARGE: Stable. MEDICATIONS: 1. Clindamycin 300 mg p.o. q.8 hours for 5 more days. 2. Meloxicam 15 mg p.o. daily for 5-7 days. 3. [place] 5/325 mg 1 tablet p.o. q.6 hours p.r.n. for severe pain. Continue home medications of the followin. Latuda 20 mg p.o. at bedtime. 2. Clonidine 0.2 mg p.o. b.i.d. 3. Clonazepam 0.5 mg p.o. b.i.d. 4. Ranitidine 150 mg p.o. daily. DISCHARGE INSTRUCTIONS: 1. Diet: Soft mechanical. 2. Activity: Ad rashaun. FOLLOWUP: 1. Follow up with PCP in 1 to 2 weeks, sooner with concern. 2. Follow up with her dentist as soon as possible. 3. Counseled on routine perioral care/hygiene. HISTORY OF THE PRESENT ILLNESS AND HOSPITAL COURSE: Ms. Claire Haji is a 37-year-old female with significant history of poor dentition associated with multiple dental cavities. She went initially to the ER on 08/31/2018 with swelling of the jaw and right neck pain. At that time, the patient was diagnosed with dental abscess and underwent incision and drainage. She was treated then with Augmentin and was sent home. On the night of 09/05/2018, patient went back to the ER secondary to acute onset of right facial swelling and pain. CT of the facial bone was obtained in the ER, which showed moderate right-sided facial swelling without signs of abscess. The patient remains febrile free, able to swallow solids and liquids without issues. Her labs at that time showed leukocytosis of 13.9 without significant left shift. The patient was admitted to [facility] for inpatient management of right facial cellulitis, failed outpatient therapy. The patient was treated with clindamycin IV, which she tolerated. The patient was also given meloxicam for anti-inflammatory and [place] for pain. The patient made a marked improvement of her right facial swelling, pain, and redness over the course. She remained febrile free and there was no significant bacteremia noted over the course. Her white count trended down. Her IV antibiotic was changed to oral prior to discharge. During this hospitalization, there was an incidental finding of persistent elevation of AST, ALT, and alkaline phosphatase. The patient reports no significant history of liver disease that she is aware of. She did not manifest any evidence of jaundice nor complaint of abdominal pain. Due to the persistent transaminases, an abdominal ultrasound was obtained on . Abdominal ultrasound showed cholelithiasis with gallbladder filled with multiple gallbladder calculi. There was no gallbladder wall thickening or pericholecystic fluid noted. Senior Health Educator does note a positive Chun sign. Otherwise, normal caliber of common duct was visualized. Above findings were discussed and reviewed with the patient. She agreed to conservative management at this point. She is aware that at any time she develop abdominal pain or become symptomatic, she is to notify PCP or go to the ER. Overall, patient did well during this hospitalization. She was eating and drinking fine. On 09/10/2018, the patient was discharged on oral antibiotic. VITAL SIGNS PRIOR TO DISCHARGE: Blood pressure 159/84, temp 98.2, pulse 56, respirations 16, O2 sats 97%. Weight 240 pounds and 3 ounces. Height 5 feet 3 inches. Time spent on this discharge 32 minutes in examining the patient, counseling, and coordinating care. Job ID: [id number]
== END 2018-09-10 10:25 | disposition home or self-care (01) | DRG 603 ==
LOC: MADERS 19:44 → MADMS 23:07
PROVIDERS: ADMIT Family Medicine; ATTEND Family Medicine
DX: L03.211 Cellulitis of face (principal); K02.9 Dental caries, unspecified; R74.0 Nonspecific elevation of levels of transaminase and lactic acid dehydrogenase [LDH]; K21.9 Gastro-esophageal reflux disease without esophagitis; F41.9 Anxiety disorder, unspecified; F31.9 Bipolar disorder, unspecified; J45.909 Unspecified asthma, uncomplicated; G89.29 Other chronic pain; M54.9 Dorsalgia, unspecified; K80.20 Calculus of gallbladder without cholecystitis without obstruction; I10 Essential (primary) hypertension; M79.7 Fibromyalgia; G40.909 Epilepsy, unspecified, not intractable, without status epilepticus; F43.10 Post-traumatic stress disorder, unspecified; F42.9 Obsessive-compulsive disorder, unspecified; F90.9 Attention-deficit hyperactivity disorder, unspecified type; F17.210 Nicotine dependence, cigarettes, uncomplicated; Z90.710 Acquired absence of both cervix and uterus; Z88.8 Allergy status to other drugs, medicaments and biological substances
CPT/HCPCS: 36415; 70487; 76705; 80053; 80076; 85025; J0696; J1650; J2270; J3490; Q9967

== ENCOUNTER 2019-03-29 18:53 | Emergency (ER) | payer OTHER ==
[2019-03-29] MEDS ORDERED: Ketorolac Tromethamine 30 MG/ML VIAL ONE (19:43)
[2019-03-29] MEDS ORDERED: Ondansetron PF 4 MG/2 ML Vial ONE (19:43)
--- NOTE | 2019-03-29 19:50 | RAD ---
Chest AP view INDICATION: Chest pain COMPARISON: September 25, 2016 FINDINGS: Lungs:The lungs are clear Cardiac silhouette:The cardiomediastinal silhouette appears within normal limits. Pulmonary vasculature:Normal Pleural spaces:No pleural effusion or pneumothorax is demonstrated. Upper abdomen:No abnormality seen. Osseous structures: No acute osseous abnormality. Additional findings:None. IMPRESSION: No acute cardiopulmonary abnormality.
[2019-03-29 20:02] LABS: #Basophils 0.1 thou/uL (0.0-0.2); #Eosinphils 0.2 thou/uL (0.0-0.7); #Lymphocytes 1.9 thou/uL (1.20-3.40); #Monocytes 0.6 thou/uL (0.11-0.59); #Neutrophils 7.5 thou/uL (1.40-6.50); %Basophils 0.9 % (0.0-1.0); %Eosinophils 1.6 % (0.0-10.0); %Lymphocytes 18.5 % (21.0-51.0); %Monocytes 5.8 % (0.0-10.0); %Neutrophils 73.1 % (42.0-75.0); Mean Corpuscular HGB CONC 32.4 g/dL (32.0-36.0); Mean Corpuscular Hemoglobin 30.9 pg (27.0-31.0); Mean Corpuscular Volume 95.2 fL (78.0-98.0); Mean Platelet Volume 6.2 fL (7.4-10.4); Platelet Count 416 thou/uL (130-400); RBC Distribution Width 12.6 % (11.5-14.5); Red Blood Cell (RBC) Count 4.52 mill/uL (4.20-5.40); White Blood Cell (WBC) Count 10.3 thou/uL (4.8-10.8)
[2019-03-29 20:20] LABS: ALT (SGPT) 25 U/L (8-55); AST (SGOT) 15 U/L (5-34); Albumin 4.1 g/dL (3.5-5.0); Alkaline Phosphatase 113 U/L (40-110); Anion Gap 15 mmol/L (10-20); BUN (Urea Nitrogen) 14 mg/dL (7.0-18.7); CK (CPK) 105 U/L (29-168); Calc. Creatinine Clearance 0 mL/min (70-130); Calcium 8.9 mg/dL (7.8-10.44); Carbon Dioxide 23 mmol/L (22-29); Chloride 104 mmol/L (98-107); Estimated GFR-MDRD 74; Globulin 3.2 g/dL (2.4-3.5); Glucose 86 mg/dL (70-105); Protein, Total 7.3 g/dL (6.0-8.3); Sodium 138 mmol/L (136-145)
[2019-03-29 20:36] LABS: Bilirubin, Total 0.6 mg/dL (0.2-1.2)
[2019-03-29] MEDS ORDERED: Cyclobenzaprine 10 MG TAB ONE (20:36)
== END 2019-03-29 20:45 | disposition home or self-care (01) ==
LOC: MADERS 18:53
DX: S29.012A Strain of muscle and tendon of back wall of thorax, initial encounter (principal); M06.9 Rheumatoid arthritis, unspecified; I10 Essential (primary) hypertension; J45.909 Unspecified asthma, uncomplicated; M79.7 Fibromyalgia; G40.909 Epilepsy, unspecified, not intractable, without status epilepticus; F41.9 Anxiety disorder, unspecified; F31.9 Bipolar disorder, unspecified; F90.9 Attention-deficit hyperactivity disorder, unspecified type; F42.9 Obsessive-compulsive disorder, unspecified; F43.10 Post-traumatic stress disorder, unspecified; F17.210 Nicotine dependence, cigarettes, uncomplicated; Z79.899 Other long term (current) drug therapy; X50.1XXA Overexertion from prolonged static or awkward postures, initial encounter
CPT/HCPCS: 71045; 80053; 82550; 85025; 93005; 94760; 96374; 96375; J1885; J2405

== ENCOUNTER 2019-08-21 22:58 | Emergency (ER) | payer OTHER | END 2019-08-21 23:52 | disposition home or self-care (01) | LOC: MADERS 22:58 | DX: L21.9 Seborrheic dermatitis, unspecified (principal); I10 Essential (primary) hypertension; M06.9 Rheumatoid arthritis, unspecified; J45.909 Unspecified asthma, uncomplicated; F17.210 Nicotine dependence, cigarettes, uncomplicated; F41.9 Anxiety disorder, unspecified; F32.9 Major depressive disorder, single episode, unspecified; F90.9 Attention-deficit hyperactivity disorder, unspecified type; F43.10 Post-traumatic stress disorder, unspecified | CPT/HCPCS: 99283 ==

== ENCOUNTER 2019-08-25 21:37 | Emergency (ER) | payer OTHER ==
[2019-08-25] MEDS ORDERED: Lorazepam 2 MG/ML VIAL ONE (22:00)
[2019-08-25] MEDS ORDERED: Ketorolac Tromethamine 30 MG/ML VIAL ONE (22:00)
[2019-08-25 22:16] LABS: BHCG - Serum Negative (NEGATIVE); Pregs Control Background? CLEAR/WHITE (CLR/WHITE); Pregs Control Bar Appear? YES (CONTROL BAR)
[2019-08-25 22:21] LABS: ALT (SGPT) 20 U/L (8-55); AST (SGOT) 12 U/L (5-34); Albumin 3.6 g/dL (3.5-5.0); Alkaline Phosphatase 81 U/L (40-110); Anion Gap 14 mmol/L (10-20); BUN (Urea Nitrogen) 17 mg/dL (7.0-18.7); Bilirubin, Total 0.2 mg/dL (0.2-1.2); CK (CPK) 84 U/L (29-168); Calc. Creatinine Clearance 0 mL/min (70-130); Calcium 8.2 mg/dL (7.8-10.44); Carbon Dioxide 20 mmol/L (22-29); Chloride 109 mmol/L (98-107); Estimated GFR-MDRD 78; Globulin 3.1 g/dL (2.4-3.5); Glucose 112 mg/dL (70-105); Lipase 26 U/L (8-78); Potassium 3.6 mmol/L (3.5-5.1); Protein, Total 6.7 g/dL (6.0-8.3); Sodium 139 mmol/L (136-145)
[2019-08-25 22:28] LABS: Band 6 % (5-11); Hemoglobin 14.5 g/dL (12.0-16.0); Lymphocytes 41 % (21-51); MDiff Complete? YES; Mean Corpuscular HGB CONC 31.3 g/dL (32.0-36.0); Mean Corpuscular Hemoglobin 29.4 pg (27.0-31.0); Monocytes 3 % (0-10); Neutrophil 50 % (42-75); Platelet Count 473 thou/uL (130-400); Red Blood Cell (RBC) Count 4.91 mill/uL (4.20-5.40); White Blood Cell (WBC) Count 10.3 thou/uL (4.8-10.8)
[2019-08-25] MEDS ORDERED: Sodium Chloride 0.9% 1,000 ML ONE (22:31)
== END 2019-08-25 23:40 | disposition home or self-care (01) ==
LOC: MADERS 21:37
DX: R53.1 Weakness (principal); M06.9 Rheumatoid arthritis, unspecified; I10 Essential (primary) hypertension; J45.909 Unspecified asthma, uncomplicated; F41.9 Anxiety disorder, unspecified; F31.9 Bipolar disorder, unspecified; F90.9 Attention-deficit hyperactivity disorder, unspecified type; F17.210 Nicotine dependence, cigarettes, uncomplicated; Z79.899 Other long term (current) drug therapy
CPT/HCPCS: 36415; 80053; 82550; 83690; 84484; 84703; 85025; 93005; 96361; 96374; 96375; J1885; J2060; J7050

== ENCOUNTER 2019-08-29 09:33 | Outpatient (CLI) | payer OTHER ==
--- NOTE | 2019-08-29 14:02 | RAD ---
CERVICAL SPINE SERIES: 08/29/19 COMPARISON: None. HISTORY: Neck pain. FINDINGS: Six views of the cervical spine shows normal height and alignment of the vertebral bodies and interve rtebral discs without fracture or subluxation. No degenerative changes are subluxation. No degenerati ve changes are seen. No prevertebral soft tissue swelling is present. IMPRESSION: No significant cervical spine abnormality. POS: [facility]
== END 2019-08-29 09:34 | disposition home or self-care (01) ==
LOC: MADRAD 09:33
PROVIDERS: ATTEND Family Medicine
DX: M54.2 Cervicalgia (principal); G89.29 Other chronic pain
CPT/HCPCS: 72050

== ENCOUNTER 2019-12-15 18:02 | Emergency (ER) | payer OTHER ==
--- NOTE | 2019-12-15 18:39 | RAD ---
XR Chest Pa Lat STANDARD HISTORY: Body aches COMPARISON: 03/29/2019 FINDINGS: The heart size is normal. The lungs are well expanded without focal areas of consolidation, pneumothorax or pleural effusions. IMPRESSION: No radiographic evidence of acute cardiopulmonary process.
[2019-12-15 18:40] LABS: Bilirubin Negative (Negative); Blood, Urine Moderate (Negative); Clarity Clear (Clear); Glucose, Urine (Dipstick) Negative (Negative); Ketone, Urine Negative (Negative); Leukocyte Negative (Negative); Nitrite Negative (Negative); Protein, Urine (Dipstick) Negative (Neg-Trace); Specific Gravity, Urine 1.025 (1.005-1.030); Urobilinogen 0.2 mg/dL (Less than 2); pH, Urine 5.5 (5.0-9.0)
[2019-12-15 18:42] LABS: WBC/HPF 0-3 HPF (0-3)
[2019-12-15 18:44] LABS: Bacteria/HPF Rare-Few HPF (None Seen); Yeast-Budding Rare HPF (None Seen)
[2019-12-15 18:57] LABS: #Basophils 0.1 thou/uL (0.0-0.2); #Eosinphils 0.1 thou/uL (0.0-0.7); #Lymphocytes 3.2 thou/uL (1.20-3.40); #Monocytes 0.5 thou/uL (0.11-0.59); #Neutrophils 8.5 thou/uL (1.40-6.50); %Eosinophils 1.1 % (0.0-10.0); %Lymphocytes 25.7 % (21.0-51.0); %Monocytes 4.3 % (0.0-10.0); %Neutrophils 67.9 % (42.0-75.0); Hemoglobin 14.1 g/dL (12.0-16.0); Mean Corpuscular Hemoglobin 30.4 pg (27.0-31.0); Mean Corpuscular Volume 92.1 fL (78.0-98.0); Mean Platelet Volume 5.9 fL (7.4-10.4); Platelet Count 454 thou/uL (130-400); RBC Distribution Width 12.9 % (11.5-14.5); Red Blood Cell (RBC) Count 4.63 mill/uL (4.20-5.40); White Blood Cell (WBC) Count 12.6 thou/uL (4.8-10.8)
[2019-12-15 19:07] LABS: CRP (Inflammatory) 2.2 mg/dL (= or < 0.5)
[2019-12-15 19:12] LABS: ALT (SGPT) 26 U/L (8-55); AST (SGOT) 19 U/L (5-34); Albumin 3.8 g/dL (3.5-5.0); Alkaline Phosphatase 103 U/L (40-110); Anion Gap 16 mmol/L (10-20); BUN (Urea Nitrogen) 13 mg/dL (7.0-18.7); Bilirubin, Total 0.3 mg/dL (0.2-1.2); Calc. Creatinine Clearance 0 mL/min (70-130); Calcium 8.8 mg/dL (7.8-10.44); Carbon Dioxide 24 mmol/L (22-29); Chloride 103 mmol/L (98-107); Estimated GFR-MDRD 77; Globulin 3.3 g/dL (2.4-3.5); Glucose 110 mg/dL (70-105); Protein, Total 7.1 g/dL (6.0-8.3); Sodium 139 mmol/L (136-145)
[2019-12-15 19:18] LABS: Magnesium 1.8 mg/dL (1.6-2.6)
[2019-12-15] MEDS ORDERED: Ketorolac Tromethamine 30 MG/ML VIAL ONE (19:19)
[2019-12-15] MEDS ORDERED: Dexamethasone 10 MG/ML VIAL ONE (22:20)
== END 2019-12-15 23:06 | disposition home or self-care (01) ==
LOC: MADERS 18:02
DX: M79.10 Myalgia, unspecified site (principal); T36.8X5A Adverse effect of other systemic antibiotics, initial encounter; M25.50 Pain in unspecified joint; M06.9 Rheumatoid arthritis, unspecified; I10 Essential (primary) hypertension; J45.909 Unspecified asthma, uncomplicated; F41.9 Anxiety disorder, unspecified; F31.9 Bipolar disorder, unspecified; F42.9 Obsessive-compulsive disorder, unspecified; F90.9 Attention-deficit hyperactivity disorder, unspecified type; F43.10 Post-traumatic stress disorder, unspecified; F17.210 Nicotine dependence, cigarettes, uncomplicated; Z79.899 Other long term (current) drug therapy
CPT/HCPCS: 71046; 80053; 81003; 81015; 82550; 83605; 83735; 84484; 85025; 86140; 93005; 94760; 96374; 96375; J1100; J1885

== ENCOUNTER 2020-06-09 15:08 | Emergency (ER) | payer OTHER ==
[2020-06-09] MEDS ORDERED: Albuterol 200 PUFF (6.7GM INHALER) ONE (16:23)
[2020-06-09] MEDS ORDERED: Sodium Chloride 0.9% 1,000 ML ONE (16:23)
[2020-06-09] MEDS ORDERED: Ondansetron PF 4 MG/2 ML Vial ONE (16:23)
[2020-06-09] MEDS ORDERED: Sodium Chloride 0.9% 100 ML ONE (16:23)
[2020-06-09] MEDS ORDERED: cefTRIAXone\\ROCEPHIN 1 GM VIAL ONE (16:24)
[2020-06-09] MEDS ORDERED: Aspirin Chewable 81 MG TAB ONE (16:24)
[2020-06-09 16:26] LABS: ALT (SGPT) 50 U/L (8-55); AST (SGOT) 17 U/L (5-34); Alkaline Phosphatase 130 U/L (40-110); Anion Gap 16 mmol/L (10-20); BUN (Urea Nitrogen) 19 mg/dL (7.0-18.7); Bilirubin, Total 0.5 mg/dL (0.2-1.2); CK (CPK) 42 U/L (29-168); Calc. Creatinine Clearance 0 mL/min (70-130); Carbon Dioxide 24 mmol/L (22-29); Chloride 99 mmol/L (98-107); Globulin 3.4 g/dL (2.4-3.5); Glucose 111 mg/dL (70-105); Potassium 3.3 mmol/L (3.5-5.1); Protein, Total 7.4 g/dL (6.0-8.3); Sodium 136 mmol/L (136-145)
[2020-06-09 16:28] LABS: #Basophils 0.1 thou/uL (0.0-0.2); #Eosinphils 0.1 thou/uL (0.0-0.7); #Monocytes 0.7 thou/uL (0.11-0.59); #Neutrophils 7.6 thou/uL (1.40-6.50); %Basophils 0.8 % (0.0-1.0); %Eosinophils 0.6 % (0.0-10.0); %Lymphocytes 26.4 % (21.0-51.0); %Neutrophils 66.2 % (42.0-75.0); Hemoglobin 16.2 g/dL (12.0-16.0); Mean Corpuscular Hemoglobin 29.9 pg (27.0-31.0); Mean Corpuscular Volume 90.7 fL (78.0-98.0); Mean Platelet Volume 6.7 fL (7.4-10.4); Platelet Count 436 thou/uL (130-400); RBC Distribution Width 13.1 % (11.5-14.5); Red Blood Cell (RBC) Count 5.39 mill/uL (4.20-5.40); White Blood Cell (WBC) Count 11.5 thou/uL (4.8-10.8)
[2020-06-09 17:35] LABS: SARS-CoV-2 NAA Rapid Test DETECTED (NotDetected)
[2020-06-09] MEDS ORDERED: Sodium Chloride 0.9% 250 ML 250 ML ONE (17:41)
[2020-06-09] MEDS ORDERED: Azithromycin 500 MG VIAL ONE (17:41)
[2020-06-09] MEDS ORDERED: Lidocaine Viscous Sol 2% 15 ml UD Cup ONE (17:58)
[2020-06-09] MEDS ORDERED: Mag-Al Plus 1200 MG/1200 MG/120 MG/30 ML UDCUP ONE (17:58)
[2020-06-09] MEDS ORDERED: diphenhydrAMINE 50 MG/ML VIAL ONE (18:03)
== END 2020-06-09 18:44 | disposition home or self-care (01) ==
LOC: MADERS 15:08
DX: U07.1 COVID-19 (principal); M06.9 Rheumatoid arthritis, unspecified; J45.909 Unspecified asthma, uncomplicated; F17.210 Nicotine dependence, cigarettes, uncomplicated; Z79.899 Other long term (current) drug therapy
CPT/HCPCS: 0240U; 36415; 71045; 80053; 82550; 83605; 84484; 85025; 87040; 93005; 96365; 96375; J0456; J0696; J1200; J2405; J3490; J7050

== ENCOUNTER 2020-11-29 17:56 | Emergency (ER) | payer OTHER ==
[2020-11-29] MEDS ORDERED: Ketorolac Tromethamine 30 MG/ML VIAL ONE (18:49)
[2020-11-29] MEDS ORDERED: Ondansetron ODT 4 MG TAB ONE (18:49)
== END 2020-11-29 19:26 | disposition home or self-care (01) ==
LOC: MADERS 17:56
DX: K43.2 Incisional hernia without obstruction or gangrene (principal); M06.9 Rheumatoid arthritis, unspecified; I10 Essential (primary) hypertension; J45.909 Unspecified asthma, uncomplicated; F17.210 Nicotine dependence, cigarettes, uncomplicated; Z79.899 Other long term (current) drug therapy
CPT/HCPCS: 96372; 99283; J1885; Q0162

== ENCOUNTER 2021-03-28 20:49 | Emergency (ER) | payer OTHER ==
[2021-03-28] MEDS ORDERED: Ibuprofen 800 MG TAB ONE (23:11)
[2021-03-29 22:29] LABS: SARS-CoV-2 PCR by NAA DETECTED (NotDetected)
== END 2021-03-28 23:20 | disposition home or self-care (01) ==
LOC: MADERS 20:49
DX: U07.1 COVID-19 (principal); I10 Essential (primary) hypertension; J45.909 Unspecified asthma, uncomplicated; F17.210 Nicotine dependence, cigarettes, uncomplicated; Z79.899 Other long term (current) drug therapy
CPT/HCPCS: 99283; U0003; U0005

== ENCOUNTER 2021-05-29 12:53 | Emergency (ER) | payer OTHER ==
[2021-05-29] MEDS ORDERED: Sodium Chloride 0.9% 100 ML BAG FS ONE (12:54)
[2021-05-29] MEDS ORDERED: Iopamidol 370 76% 100 ML VIAL FS ONE (12:54)
[2021-05-29] MEDS ORDERED: Iopamidol 370 76% 125 ML VIAL FS ONE (12:54)
[2021-05-29 14:17] LABS: #Basophils 0.1 thou/uL (0.0-0.2); #Eosinphils 0.1 thou/uL (0.0-0.7); #Lymphocytes 1.7 thou/uL (1.20-3.40); #Monocytes 0.6 thou/uL (0.11-0.59); #Neutrophils 8.6 thou/uL (1.40-6.50); %Basophils 0.7 % (0.0-1.0); %Eosinophils 1.1 % (0.0-10.0); %Lymphocytes 15.4 % (21.0-51.0); %Monocytes 5.7 % (0.0-10.0); %Neutrophils 77.2 % (42.0-75.0); Hemoglobin 13.3 g/dL (12.0-16.0); Mean Corpuscular HGB CONC 33.9 g/dL (32.0-36.0); Mean Corpuscular Hemoglobin 30.7 pg (27.0-31.0); Mean Corpuscular Volume 90.4 fL (78.0-98.0); Mean Platelet Volume 6.3 fL (7.4-10.4); Platelet Count 372 thou/uL (130-400); RBC Distribution Width 12.9 % (11.5-14.5); Red Blood Cell (RBC) Count 4.35 mill/uL (4.20-5.40); White Blood Cell (WBC) Count 11.1 thou/uL (4.8-10.8)
[2021-05-29] MEDS ORDERED: methylPREDNISolone Sod Succ/PF 125 MG/2 ML VIAL ONE (14:27)
[2021-05-29 14:32] LABS: ALT (SGPT) 48 U/L (8-55); AST (SGOT) 38 U/L (5-34); Albumin 3.5 g/dL (3.5-5.0); Alkaline Phosphatase 127 U/L (40-110); Anion Gap 11 mmol/L (10-20); BUN (Urea Nitrogen) 9 mg/dL (7.0-18.7); Bilirubin, Total 0.6 mg/dL (0.2-1.2); CK (CPK) 55 U/L (29-168); Calc. Creatinine Clearance 0 mL/min (70-130); Calcium 8.6 mg/dL (7.8-10.44); Carbon Dioxide 25 mmol/L (22-29); Chloride 105 mmol/L (98-107); Glucose 101 mg/dL (70-105); Potassium 3.3 mmol/L (3.5-5.1); Protein, Total 6.5 g/dL (6.0-8.3); Sodium 138 mmol/L (136-145)
[2021-05-29] MEDS ORDERED: Ibuprofen 600 MG TAB ONE (15:02)
== END 2021-05-29 15:39 | disposition home or self-care (01) ==
LOC: MADERS 12:53
DX: J44.1 Chronic obstructive pulmonary disease with (acute) exacerbation (principal); I10 Essential (primary) hypertension; J45.909 Unspecified asthma, uncomplicated; M06.9 Rheumatoid arthritis, unspecified; F17.210 Nicotine dependence, cigarettes, uncomplicated; M79.7 Fibromyalgia; E66.9 Obesity, unspecified; Z68.45 Body mass index [BMI] 70 or greater, adult; Z87.19 Personal history of other diseases of the digestive system; Z86.16 Personal history of COVID-19
CPT/HCPCS: 71045; 71275; 80053; 82550; 83880; 84484; 85025; 85379; 87804; 93005; 96374; J2930; J7620; Q9967

== ENCOUNTER 2021-06-20 13:50 | Emergency (ER) | payer OTHER ==
[2021-06-20] MEDS ORDERED: Iopamidol 370 76% 100 ML VIAL ONE (13:53)
[2021-06-20] MEDS ORDERED: Dicyclomine 20 MG/2 ML VIAL ONE (14:31)
[2021-06-20 14:36] LABS: BHCG - Serum Negative (NEGATIVE); Pregs Control Background? CLEAR/WHITE (CLR/WHITE); Pregs Control Bar Appear? YES (CONTROL BAR)
[2021-06-20 14:39] LABS: #Basophils 0.1 thou/uL (0.0-0.2); #Eosinphils 0.3 thou/uL (0.0-0.7); #Lymphocytes 3.1 thou/uL (1.20-3.40); #Monocytes 0.5 thou/uL (0.11-0.59); #Neutrophils 8.3 thou/uL (1.40-6.50); %Basophils 1.1 % (0.0-1.0); %Eosinophils 2.3 % (0.0-10.0); %Lymphocytes 25.1 % (21.0-51.0); %Monocytes 4.3 % (0.0-10.0); %Neutrophils 67.2 % (42.0-75.0); Hemoglobin 15.6 g/dL (12.0-16.0); Mean Corpuscular HGB CONC 32.1 g/dL (32.0-36.0); Mean Corpuscular Hemoglobin 30.5 pg (27.0-31.0); Mean Corpuscular Volume 95.1 fL (78.0-98.0); Mean Platelet Volume 6.8 fL (7.4-10.4); Platelet Count 586 thou/uL (130-400); RBC Distribution Width 12.5 % (11.5-14.5); Red Blood Cell (RBC) Count 5.11 mill/uL (4.20-5.40); White Blood Cell (WBC) Count 12.3 thou/uL (4.8-10.8)
[2021-06-20 14:50] LABS: ALT (SGPT) 16 U/L (8-55); AST (SGOT) 19 U/L (5-34); Alkaline Phosphatase 110 U/L (40-110); Anion Gap 18 mmol/L (10-20); BUN (Urea Nitrogen) 13 mg/dL (7.0-18.7); Bilirubin, Total 0.4 mg/dL (0.2-1.2); Calc. Creatinine Clearance 0 mL/min (70-130); Calcium 8.8 mg/dL (7.8-10.44); Carbon Dioxide 22 mmol/L (22-29); Chloride 104 mmol/L (98-107); Globulin 3.7 g/dL (2.4-3.5); Glucose 96 mg/dL (70-105); Lipase 24 U/L (8-78); Potassium 5.1 mmol/L (3.5-5.1); Protein, Total 7.7 g/dL (6.0-8.3); Sodium 139 mmol/L (136-145)
[2021-06-20] MEDS ORDERED: Morphine 4 MG/ML VIAL ONE (15:41)
== END 2021-06-20 17:00 | disposition short-term general hospital (02) ==
LOC: MADERS 13:50
DX: K46.0 Unspecified abdominal hernia with obstruction, without gangrene (principal); I10 Essential (primary) hypertension; F17.210 Nicotine dependence, cigarettes, uncomplicated; Z79.899 Other long term (current) drug therapy
CPT/HCPCS: 74177; 80053; 83605; 83690; 84703; 85025; 94760; 96372; 96374; J0500; J2270; Q9967

== ENCOUNTER 2022-02-03 19:56 | Emergency (ER) | payer OTHER ==
[2022-02-03 21:19] LABS: #Basophils 0.1 thou/uL (0.0-0.2); #Eosinphils 0.3 thou/uL (0.0-0.7); #Lymphocytes 3.5 thou/uL (1.20-3.40); #Monocytes 0.4 thou/uL (0.11-0.59); #Neutrophils 8.8 thou/uL (1.40-6.50); %Basophils 0.8 % (0.0-1.0); %Eosinophils 2.2 % (0.0-10.0); %Lymphocytes 26.9 % (21.0-51.0); %Monocytes 3.1 % (0.0-10.0); Hemoglobin 14.1 g/dL (12.0-16.0); Mean Corpuscular HGB CONC 32.9 g/dL (32.0-36.0); Mean Corpuscular Hemoglobin 30.3 pg (27.0-31.0); Mean Platelet Volume 7.1 fL (7.4-10.4); Platelet Count 405 10x3/uL (130-400); RBC Distribution Width 11.9 % (11.5-14.5); Red Blood Cell (RBC) Count 4.64 mill/uL (4.20-5.40); White Blood Cell (WBC) Count 13.1 10x3/uL (4.8-10.8)
[2022-02-03 21:36] LABS: ALT (SGPT) 14 U/L (8-55); AST (SGOT) 10 U/L (5-34); Albumin 3.4 g/dL (3.5-5.0); Alkaline Phosphatase 99 U/L (40-110); Anion Gap 13 mmol/L (10-20); BUN (Urea Nitrogen) 11 mg/dL (7.0-18.7); Bilirubin, Total 0.5 mg/dL (0.2-1.2); Calc. Creatinine Clearance 0 mL/min (70-130); Calcium 8.6 mg/dL (7.8-10.44); Carbon Dioxide 24 mmol/L (22-29); Chloride 105 mmol/L (98-107); Estimated GFR 102; Globulin 3.3 g/dL (2.4-3.5); Glucose 108 mg/dL (70-105); Potassium 3.5 mmol/L (3.5-5.1); Protein, Total 6.7 g/dL (6.0-8.3); Sodium 138 mmol/L (136-145)
[2022-02-03] MEDS ORDERED: Ondansetron PF 4 MG/2 ML Vial ONE ×2 (21:48→21:50)
[2022-02-03] MEDS ORDERED: Sodium Chloride 0.45% 1,000 ML ONE (21:48)
[2022-02-03] MEDS ORDERED: Sodium Chloride 0.9% 1,000 ML ONE (21:50)
[2022-02-03] MEDS ORDERED: Ketorolac Tromethamine 30 MG/ML VIAL ONE (22:13)
== END 2022-02-04 01:00 | disposition home or self-care (01) ==
LOC: MADERS 19:56
DX: M79.631 Pain in right forearm (principal); M79.632 Pain in left forearm; K21.9 Gastro-esophageal reflux disease without esophagitis; E66.9 Obesity, unspecified; I10 Essential (primary) hypertension; J45.909 Unspecified asthma, uncomplicated; F17.200 Nicotine dependence, unspecified, uncomplicated; Z79.899 Other long term (current) drug therapy
CPT/HCPCS: 71045; 80053; 85025; 87804; 96361; 96374; 96375; J1885; J2405; J7050

== ENCOUNTER 2022-11-16 21:53 | Emergency (ER) | payer OTHER ==
[2022-11-16] MEDS ORDERED: HYDROcodone/Acetaminophen 5/325 mg Tablet ONE (23:27)
[2022-11-16] MEDS ORDERED: Cyclobenzaprine 10 MG TAB ONE (23:28)
[2022-11-16] MEDS ORDERED: Dexamethasone 10 MG/ML VIAL ONE (23:28)
== END 2022-11-16 23:55 | disposition home or self-care (01) ==
LOC: MADERS 21:53
DX: S29.012A Strain of muscle and tendon of back wall of thorax, initial encounter (principal); I10 Essential (primary) hypertension; E66.9 Obesity, unspecified; K21.9 Gastro-esophageal reflux disease without esophagitis; F17.210 Nicotine dependence, cigarettes, uncomplicated; Z79.899 Other long term (current) drug therapy; X50.1XXA Overexertion from prolonged static or awkward postures, initial encounter
CPT/HCPCS: 96372; 99283; J1100

== ENCOUNTER 2023-01-17 14:30 | Emergency (ER) | payer OTHER ==
[2023-01-17] MEDS ORDERED: Aspirin Chewable 81 MG TAB ONE (15:40)
[2023-01-17] MEDS ORDERED: methylPREDNISolone Sod Succ/PF 125 MG/2 ML VIAL ONE (15:40)
[2023-01-17] MEDS ORDERED: Ipratropium/Albuterol 3 ML NEB ONE ×3 (15:40→18:09)
[2023-01-17 15:51] LABS: BHCG - Serum Negative (NEGATIVE)
[2023-01-17 15:52] LABS: Pregs Control Background? CLEAR/WHITE (CLR/WHITE); Pregs Control Bar Appear? YES (CONTROL BAR)
[2023-01-17 16:00] LABS: ALT (SGPT) 22 U/L (8-55); AST (SGOT) 17 U/L (5-34); Albumin 3.6 g/dL (3.5-5.0); Alkaline Phosphatase 131 U/L (40-110); Anion Gap 14 mmol/L (10-20); BUN (Urea Nitrogen) 12 mg/dL (7.0-18.7); Bilirubin, Total 0.3 mg/dL (0.2-1.2); Calc. Creatinine Clearance 0 mL/min (70-130); Calcium 8.6 mg/dL (7.8-10.44); Carbon Dioxide 25 mmol/L (22-29); Chloride 102 mmol/L (98-107); Estimated GFR 88; Globulin 3.3 g/dL (2.4-3.5); Glucose 109 mg/dL (70-105); Lipase 17 U/L (8-78); Potassium 3.8 mmol/L (3.5-5.1); Protein, Total 6.9 g/dL (6.0-8.3); Sodium 137 mmol/L (136-145)
[2023-01-17 16:01] LABS: Troponin I Less than 0.010 ng/mL (< 0.028)
[2023-01-17 16:07] LABS: #Basophils 0.1 thou/uL (0.0-0.2); #Eosinphils 0.3 thou/uL (0.0-0.7); #Lymphocytes 2.9 thou/uL (1.20-3.40); #Monocytes 0.5 thou/uL (0.11-0.59); %Basophils 1.1 % (0.0-1.0); %Eosinophils 2.4 % (0.0-10.0); %Lymphocytes 24.8 % (21.0-51.0); %Monocytes 3.8 % (0.0-10.0); %Neutrophils 67.9 % (42.0-75.0); Hematocrit 45.3 % (36.0-47.0); Hemoglobin 14.5 g/dL (12.0-16.0); Mean Corpuscular Hemoglobin 29.4 pg (27.0-31.0); Mean Platelet Volume 7.6 fL (7.4-10.4); Platelet Count 396 10x3/uL (130-400); RBC Distribution Width 13.9 % (11.5-14.5); Red Blood Cell (RBC) Count 4.92 mill/uL (4.20-5.40); White Blood Cell (WBC) Count 11.8 10x3/uL (4.8-10.8)
[2023-01-17] MEDS ORDERED: Benzonatate 100 MG CAP ONE (16:35)
[2023-01-17] MEDS ORDERED: Acetaminophen 500 MG TAB ONE (16:35)
[2023-01-17 18:34] LABS: Troponin I Less than 0.010 ng/mL (< 0.028)
== END 2023-01-17 18:58 | disposition home or self-care (01) ==
LOC: MADERS 14:30
DX: J06.9 Acute upper respiratory infection, unspecified (principal); J45.909 Unspecified asthma, uncomplicated; I10 Essential (primary) hypertension; E66.9 Obesity, unspecified; K21.9 Gastro-esophageal reflux disease without esophagitis; F17.210 Nicotine dependence, cigarettes, uncomplicated; Z20.822 Contact with and (suspected) exposure to COVID-19; Z79.899 Other long term (current) drug therapy
CPT/HCPCS: 36415; 71046; 71275; 80053; 83690; 84484; 84703; 85025; 85379; 87635; 87804; 93005; 94760; 96374; J2930; J7620; Q9967

== ENCOUNTER 2023-03-09 15:00 | Emergency (ER) | payer OTHER ==
[2023-03-09] MEDS ORDERED: Ketorolac Tromethamine 30 MG/ML VIAL ONE (15:53)
== END 2023-03-09 16:06 | disposition home or self-care (01) ==
LOC: MADERS 15:00
DX: S83.91XA Sprain of unspecified site of right knee, initial encounter (principal); I10 Essential (primary) hypertension; E66.9 Obesity, unspecified; K21.9 Gastro-esophageal reflux disease without esophagitis; F17.210 Nicotine dependence, cigarettes, uncomplicated; Z79.899 Other long term (current) drug therapy; X50.1XXA Overexertion from prolonged static or awkward postures, initial encounter
CPT/HCPCS: 96372; J1885

== ENCOUNTER 2023-07-19 22:00 | Emergency (ER) | payer OTHER ==
[2023-07-19] MEDS ORDERED: Ketorolac Tromethamine 60 MG/2 ML VIAL ONE (23:00)
[2023-07-19] MEDS ORDERED: Dexamethasone 10 MG/ML VIAL ONE (23:00)
== END 2023-07-19 23:49 | disposition home or self-care (01) ==
LOC: MADERS 22:00
DX: M79.672 Pain in left foot (principal); I10 Essential (primary) hypertension; K21.9 Gastro-esophageal reflux disease without esophagitis; F17.210 Nicotine dependence, cigarettes, uncomplicated; E11.40 Type 2 diabetes mellitus with diabetic neuropathy, unspecified; Z79.4 Long term (current) use of insulin; Z79.899 Other long term (current) drug therapy
CPT/HCPCS: 96372; J1100; J1885

== ENCOUNTER 2024-06-26 06:46 | Emergency (ER) | payer OTHER ==
[2024-06-26] MEDS ORDERED: Acetaminophen 500 MG TAB ONE (07:38)
[2024-06-26] MEDS ORDERED: Ketorolac Tromethamine 60 MG/2 ML VIAL ONE (07:38)
[2024-06-26 08:15] LABS: Bilirubin Negative (Negative); Blood, Urine Trace (Negative); Clarity Clear (Clear); Glucose, Urine (Dipstick) 500 mg/dL (Negative); Ketone, Urine Negative (Negative); Leukocyte Negative (Negative); Nitrite Negative (Negative); Protein, Urine (Dipstick) Negative (Neg-Trace); Urobilinogen 0.2 mg/dL (Less than 2); pH, Urine 6.5 (5.0-9.0)
[2024-06-26 08:21] LABS: Pregnancy Test - Urine (BHCG) Negative (Negative); Pregu Control Background? CLEAR/WHITE (CLR/WHITE); Pregu Control Bar Appear? YES (CONTROL BAR)
[2024-06-26 08:23] LABS: Bacteria/HPF Rare-Few HPF (None Seen); CAUTI Indications for Culture Pelvic or flank pain; RBC/HPF 0-3 HPF (0-3); WBC/HPF 0-3 HPF (0-3)
[2024-06-26 08:24] LABS: Amphetamine PRELIM POSITIVE (Negative); Barbiturates Screen Negative (Negative); Benzodiazepine Screen Negative (Negative); Cocaine Metabolite Screen Negative (Negative); Methadone Negative (Negative); Methamphetamine PRELIM POSITIVE (Negative); Opiate Screen Negative (Negative); Oxycodone Screen Negative (Negative); Phencyclidine (PCP) Negative (Negative); THC/Cannabinoid Screen Negative (Negative); Tricyclic Screen Negative (Negative); Urine Culture Reflex No No
[2024-06-26 08:52] LABS: #Basophils 0.1 thou/uL (0.0-0.2); #Eosinophils 0.4 thou/uL (0.0-0.7); #Lymphocytes 3.5 thou/uL (1.20-3.40); #Monocytes 0.9 thou/uL (0.11-0.59); #Neutrophils 10.2 thou/uL (1.40-6.50); %Basophils 0.8 % (0.0-1.0); %Eosinophils 2.3 % (0.0-10.0); %Lymphocytes 23.2 % (21.0-51.0); %Neutrophils 67.7 % (42.0-75.0); Mean Corpuscular HGB CONC 31.3 g/dL (32.0-36.0); Mean Corpuscular Hemoglobin 28.5 pg (27.0-31.0); Mean Corpuscular Volume 91.1 fl (78.0-98.0); Mean Platelet Volume 6.8 fL (7.4-10.4); Platelet Count 423 10x3/uL (130-400); RBC Distribution Width 13.7 % (11.5-14.5); Red Blood Cell (RBC) Count 5.27 mill/uL (4.20-5.40); White Blood Cell (WBC) Count 15.1 10x3/uL (4.8-10.8)
[2024-06-26 09:13] LABS: ALT (SGPT) 11 U/L (Less than 34); AST (SGOT) 9 U/L (11-34); Albumin 3.5 g/dL (3.1-4.5); Alkaline Phosphatase 103 U/L (40-110); Anion Gap 14 mmol/L (10-20); BUN (Urea Nitrogen) 22 mg/dL (7.0-18.7); Bilirubin, Total 0.4 mg/dL (0.3-1.2); Calc. Creatinine Clearance 0 mL/min (70-130); Calcium 8.8 mg/dL (7.8-10.44); Carbon Dioxide 20 mmol/L (22-29); Chloride 105 mmol/L (98-107); Estimated GFR 67; Globulin 3.6 g/dL (2.4-3.5); Glucose 103 mg/dL (70-105); Lipase 74 U/L (8-78); Potassium 4.2 mmol/L (3.5-5.1); Protein, Total 7.1 g/dL (6.0-8.3); Sodium 135 mmol/L (136-145)
[2024-06-26] MEDS ORDERED: Morphine 4 MG/ML VIAL ONE (09:45)
== END 2024-06-26 09:53 | disposition home or self-care (01) ==
LOC: MADERS 06:46
DX: M54.50 Low back pain, unspecified (principal); E11.9 Type 2 diabetes mellitus without complications; I10 Essential (primary) hypertension; E66.9 Obesity, unspecified; F17.210 Nicotine dependence, cigarettes, uncomplicated; Z79.4 Long term (current) use of insulin; Z79.899 Other long term (current) drug therapy; Z79.85 Long-term (current) use of injectable non-insulin antidiabetic drugs
CPT/HCPCS: 74176; 80053; 80306; 81001; 81025; 83605; 83690; 85025; 96372; J1885; J2270

== ENCOUNTER 2024-10-16 06:39 | Emergency (ER) | payer OTHER ==
[2024-10-16] MEDS ORDERED: Albuterol 200 PUFF (6.7GM INHALER) ONE (07:06)
[2024-10-16] MEDS ORDERED: predniSONE 20 MG TAB ONE (07:06)
[2024-10-16] MEDS ORDERED: Acetaminophen 500 MG TAB ONE (07:53)
== END 2024-10-16 07:55 | disposition home or self-care (01) ==
LOC: MADERS 06:39
DX: J20.9 Acute bronchitis, unspecified (principal); E66.9 Obesity, unspecified; E11.9 Type 2 diabetes mellitus without complications; I10 Essential (primary) hypertension; M79.7 Fibromyalgia; J45.909 Unspecified asthma, uncomplicated; K21.9 Gastro-esophageal reflux disease without esophagitis; F17.210 Nicotine dependence, cigarettes, uncomplicated
CPT/HCPCS: 71046; J7512

== ENCOUNTER 2024-11-22 10:06 | Emergency (ER) | payer MEDICAID, OTHER ==
[2024-11-22 10:43] LABS: #Basophils 0.1 thou/uL (0.0-0.2); #Eosinophils 0.3 thou/uL (0.0-0.7); #Lymphocytes 2.7 thou/uL (1.20-3.40); #Monocytes 0.5 thou/uL (0.11-0.59); #Neutrophils 9.0 thou/uL (1.40-6.50); %Basophils 0.8 % (0.0-1.0); %Eosinophils 2.2 % (0.0-10.0); %Lymphocytes 21.5 % (21.0-51.0); %Monocytes 4.3 % (0.0-10.0); %Neutrophils 71.2 % (42.0-75.0); Hematocrit 40.1 % (36.0-47.0); Hemoglobin 13.1 g/dL (12.0-16.0); Mean Corpuscular Hemoglobin 29.8 pg (27.0-31.0); Mean Corpuscular Volume 91.6 fl (78.0-98.0); Platelet Count 448 10x3/uL (130-400); Red Blood Cell (RBC) Count 4.37 mill/uL (4.20-5.40); White Blood Cell (WBC) Count 12.6 10x3/uL (4.8-10.8)
[2024-11-22 11:02] LABS: ALT (SGPT) 13 U/L (Less than 34); AST (SGOT) 16 U/L (11-34); Albumin 3.6 g/dL (3.1-4.5); Alkaline Phosphatase 92 U/L (40-110); Anion Gap 14 mmol/L (10-20); BUN (Urea Nitrogen) 15 mg/dL (7.0-18.7); Bilirubin, Total 0.3 mg/dL (0.3-1.2); Calc. Creatinine Clearance 0 mL/min (70-130); Calcium 8.3 mg/dL (7.8-10.44); Carbon Dioxide 24 mmol/L (22-29); Chloride 107 mmol/L (98-107); Globulin 3.2 g/dL (2.4-3.5); Glucose 108 mg/dL (70-105); Potassium 3.4 mmol/L (3.5-5.1); Sodium 142 mmol/L (136-145); Troponin I 0.018 ng/mL (< 0.028)
[2024-11-22] MEDS ORDERED: Furosemide 40 MG (4 mL) VIAL ONE (11:22)
[2024-11-22 11:53] LABS: Glucose, Urine (Dipstick) Negative (Negative); Leukocyte Negative (Negative); Protein, Urine (Dipstick) Negative (Neg-Trace); Specific Gravity, Urine 1.015 (1.005-1.030)
[2024-11-22 12:00] LABS: Bacteria/HPF Rare-Few HPF (None Seen); CAUTI Indications for Culture Dysuria,urgency,freq; RBC/HPF 0-3 HPF (0-3); Urine Culture Reflex No No; WBC/HPF 0-3 HPF (0-3)
== END 2024-11-22 13:09 | disposition home or self-care (01) ==
LOC: MADERS 10:06
DX: R60.0 Localized edema (principal); I10 Essential (primary) hypertension; E11.9 Type 2 diabetes mellitus without complications; K21.9 Gastro-esophageal reflux disease without esophagitis; F17.210 Nicotine dependence, cigarettes, uncomplicated; J45.909 Unspecified asthma, uncomplicated; Z79.899 Other long term (current) drug therapy; Z79.84 Long term (current) use of oral hypoglycemic drugs; Z79.51 Long term (current) use of inhaled steroids
CPT/HCPCS: 71045; 80053; 81001; 83880; 84484; 85025; 93005; 96374; J1940